=== PATIENT | male | born 1970 | race Hispanic/Latino ===

== ENCOUNTER 2018-10-11 18:17 | Emergency (ER) | payer SELFPAY ==
[2018-10-11] MEDS ORDERED: NORCO 5/325 PO ONE ×2 (20:14→23:55)
--- NOTE | 2018-10-11 20:35 | Emergency Department Report ---
ED ENT HPI - General Chief complaint: Dental/Oral Stated complaint: HIT IN FACE BY TREE Time Seen by Provider: 10/11/18 20:13 Source: patient Mode of arrival: Ambulatory Limitations: No Limitations - History of Present Illness Initial comments: 48-year-old male reports that he was feeding the treatment into a tree puller when the butt of the tree stump hit himself in the right side of his face. Patient complains of right side of face cheek dented in with pain. Patient reports no past medical history no past surgical history does report that he smokes cigarettes and he does have a family history of cardiac disease. Patient reports no known drug allergies currently taking no medications at this time. Patient denies any loss of consciousness. -: This evening Severity scale (0 -10): 9 Quality: aching Consistency: constant Improves with: none Worsens with: movement Context- Dental: trauma - Related Data Allergies Allergy/AdvReac Type Severity Reaction Status Date / Time No Known Allergies Allergy Unverified 10/11/18 18:33 ED Dental HPI - General Chief complaint: Dental/Oral Stated complaint: HIT IN FACE BY TREE Time Seen by Provider: 10/11/18 20:13 Source: patient Mode of arrival: Ambulatory Limitations: No Limitations - Related Data Allergies Allergy/AdvReac Type Severity Reaction Status Date / Time No Known Allergies Allergy Unverified 10/11/18 18:33 ED Review of Systems ROS: Stated complaint: HIT IN FACE BY TREE Other details as noted in HPI Comment: All other systems reviewed and negative Constitutional: denies: chills, fever Eyes: denies: eye pain, eye discharge, vision change ENT: other (facial pain) ED Past Medical Hx - Past Medical History Previous Medical History?: No - Surgical History Past Surgical History?: No - Social History Smoking Status: Current Every Day Smoker Substance Use Type: Marijuana ED Physical Exam - General Limitations: No Limitations General appearance: alert, in no apparent distress - Head Head exam: Present: other (right cheek dented in tenderness) - Eye Eye exam: Present: normal appearance, PERRL, EOMI - ENT ENT exam: Present: mucous membranes moist - Neck Neck exam: Present: full ROM - Respiratory Respiratory exam: Present: normal lung sounds bilaterally. Absent: respiratory distress - Cardiovascular Cardiovascular Exam: Present: regular rate, normal rhythm. Absent: systolic murmur, diastolic murmur, rubs, gallop - Neurological Exam Neurological exam: Present: normal gait - Psychiatric Psychiatric exam: Present: normal affect, normal mood - Skin Skin exam: Present: warm, dry, intact, normal color. Absent: rash ED Course Vital Signs 10/11/18 18:30 Temperature 97.5 F L Pulse Rate 103 H Respiratory 18 Rate Blood Pressure 132/83 O2 Sat by Pulse 97 Oximetry ED Medical Decision Making - Radiology Data Radiology results: report reviewed FINAL REPORT PROCEDURE: CT FACIAL BONES WO CON TECHNIQUE: Computerized tomography of the facial bones and soft tissues with axial and coronal sections performed from the cranial aspect of the frontal sinuses to the caudal portion of the mandible without contrast material. HISTORY: trauma, pain COMPARISON: No prior studies are available for comparison. FINDINGS: There are right facial fractures. There is a mildly displaced fracture of the right lateral orbital wall and right orbital floor. There is extension to the anterior wall of the right maxillary sinus and comminuted fracture of the right maxillary sinus posterior lateral wall. There is also fracture of the right zygomatic arch, with 3 millimeters of depression. The orbital floor fracture is not significantly depressed. No herniated orbital contents are seen. The intraorbital structures and globes are grossly unremarkable in CT appearance. There is fluid in the right maxillary sinus. There is fluid in the right mastoid sinus, with bony sclerosis, which can be seen with mastoiditis. IMPRESSION: Right facial fractures as described above. There is fluid in the right mastoid sinus, with adjacent bony sclerosis, which can be seen with mastoiditis Transcribed By: [facility] Dictated By: ALONZO WEBER M.D. Electronically Authenticated By: ALONZO WEBER M.D. Signed Date/Time: 10/11/182128 DD/ 30 TD/TT: 10/11/182130 - Medical Decision Making Spoke with Dr. Hi Maddox ER attending regarding patient presentation and results from CT. He was able to evaluate patient as well. Spoke with [facility] regarding CT results they have accepted patient as a transfer. Also spoke to patient regarding the need to follow-up with [facility] he states he will go and be evaluated. Spoke to CT to have copy of CT on disc to be sent to transferring hospital. Spoke with Dr. Pearson from trauma they have accepted patient as a transfer. Critical care attestation.: If time is entered above; I have spent that time in minutes in the direct care of this critically ill patient, excluding procedure time. ED Disposition Clinical Impression: Zygomatic fracture, right side, sequela Fracture of right orbital floor Qualifiers: Encounter type: initial encounter Fracture type: closed Qualified Code(s): S02.31XA - Fracture of orbital floor, right side, initial encounter for closed fracture Fracture of orbital wall Qualifiers: Encounter type: initial encounter Fracture type: closed Qualified Code(s): S02.80XA - Fracture of other specified skull and facial bones, unspecified side, initial encounter for closed fracture Open comminuted fracture of maxillary alveolar bone Qualifiers: Encounter type: initial encounter Qualified Code(s): S02.42XB - Fracture of alveolus of maxilla, initial encounter for open fracture Traumatic fracture of facial bone Qualifiers: Encounter type: initial encounter Fracture type: closed Qualified Code(s): S02.92XA - Unspecified fracture of facial bones, initial encounter for closed fracture Disposition: [id number]/TX-[id number] ANOTHER TYPE HLTHCARE Is pt being admited?: No Does the pt Need Aspirin: No Condition: Stable Instructions: Facial Fracture (ED) Additional Instructions: Patient is being transferred to [facility] via transfer system. Referrals: [facility] [Outside] - 3-5 Days
--- NOTE | 2018-10-11 21:29 | Cat Scan Report ---
FINAL REPORT PROCEDURE: CT FACIAL BONES WO CON TECHNIQUE: Computerized tomography of the facial bones and soft tissues with axial and coronal secti ons performed from the cranial aspect of the frontal sinuses to the caudal portion of the mandible wi thout contrast material. HISTORY: trauma, pain COMPARISON: No prior studies are available for comparison. FINDINGS: There are right facial fractures. There is a mildly displaced fracture of the right lateral orbital w all and right orbital floor. There is extension to the anterior wall of the right maxillary sinus and comminuted fracture of the right maxillary sinus posterior lateral wall. There is also fracture of t he right zygomatic arch, with 3 millimeters of depression. The orbital floor fracture is not signific antly depressed. No herniated orbital contents are seen. The intraorbital structures and globes are g rossly unremarkable in CT appearance. There is fluid in the right maxillary sinus. There is fluid in the right mastoid sinus, with bony sclerosis, which can be seen with mastoiditis. IMPRESSION: Right facial fractures as described above. There is fluid in the right mastoid sinus, with adjacent bony sclerosis, which can be seen with masto iditis
[2018-10-11 23:58] VITALS: BP 114/85
[2018-10-11] MEDS ORDERED: NORCO 5/325 ONE (23:59)
== END 2018-10-12 00:08 | disposition other institution (70) ==
LOC: ED 18:17
DX: S02.31XA Fracture of orbital floor, right side, initial encounter for closed fracture (principal); S02.42XB Fracture of alveolus of maxilla, initial encounter for open fracture; S02.92XA Unspecified fracture of facial bones, initial encounter for closed fracture; F17.200 Nicotine dependence, unspecified, uncomplicated; F12.10 Cannabis abuse, uncomplicated; W22.8XXA Striking against or struck by other objects, initial encounter; Y93.89 Activity, other specified; Y92.89 Other specified places as the place of occurrence of the external cause; Y99.8 Other external cause status
CPT/HCPCS: 70486